=== PATIENT | male | born 1950 | race Caucasian/White ===

== ENCOUNTER 2019-09-23 09:59 | Observation (INO) | payer OTHER ==
[~2019-09-23] VITALS: Ht 175.3 cm; Wt 116.2 kg
[~2019-09-23 09:59] MED LIST: AMLO5 PO; ASPI325; ASPI81CH PO; ATEN50; BUPR100ER PO; CAND16; CENTRUM SILVER1 EAC2 PO; DICL75ER; FISH1000 PO; FURO40 PO; GLIP5ER; GLIP5ER PO; HYDCHL25 PO; LANS30EC; LEVSOD150 PO; LOSA50 PO; METF500 PO; METO50ER PO; NITR.4SL SL; NORT10 PO; PANT40 PO; POTA10T PO; ROSU10TA PO; SERT100; SERT25 PO; SIMV40; TRAM50
[2019-09-23] MEDS ORDERED: ATOR80 PO (10:15)
[2019-09-23] MEDS ORDERED: THERA-D2000 UNIT PO (10:16)
[2019-09-23] MEDS ORDERED: Zyrtec10 MG PO (10:16)
[2019-09-23] MEDS ORDERED: ARTIFICIAL TEA1 EACH BOTHEYES (10:17)
[2019-09-23] MEDS ORDERED: DOCU100 PO (10:17)
[2019-09-23] MEDS ORDERED: HYDR1TAB94 PO (10:18)
[2019-09-23] MEDS ORDERED: Flonase 0.05% N16 GM (10:18)
[2019-09-23] MEDS ORDERED: MIRALAX17 GM PO (10:21)
[2019-09-23] MEDS ORDERED: TAMS.4ER PO (10:23)
[2019-09-23 10:28] LABS: BASOPHILS ABSOLUTE AUTO 0.03 K/mm3 (0.00-0.23); BASOPHILS PERCENT AUTO 1 % (0-2); EOSINOPHILS ABSOLUTE AUTO 0.17 K/mm3 (0.00-0.68); EOSINOPHILS PERCENT AUTO 4 % (0-6); Hematocrit 34.9 % (37.0-53.0); Hemoglobin 12.2 g/dL (13.5-17.5); IMMATURE GRAN ABSOLUTE AUTO 0.07 K/mm3 (0.00-0.10); IMMATURE GRAN PERCENT AUTO 2 % (0-1); LYMPHOCYTES ABSOLUTE AUTO 1.13 K/mm3 (0.84-5.20); LYMPHOCYTES PERCENT AUTO 24 % (21-46); MONOCYTES ABSOLUTE AUTO 0.42 K/mm3 (0.16-1.47); MONOCYTES PERCENT AUTO 9 % (4-13); Mean Corpuscular HGB 31.4 pg (26.0-34.0); Mean Corpuscular Volume 90 fL (80-100); NEUTROPHILS ABSOLUTE AUTO 2.99 K/mm3 (1.96-9.15); NEUTROPHILS PERCENT AUTO 62 % (41-73); Platelet Count 175 K/mm3 (150-400); RDW Coefficient Variation 13.2 % (11.7-14.2); RDW Standard Deviation 43.6 fL (35.1-46.3); Red Blood Cell Count 3.88 M/mm3 (4.30-5.90); White Blood Cell Count 4.81 K/mm3 (4.00-11.30)
[2019-09-23 10:48] LABS: Alanine Aminotransfer (ALT/SGP 30 U/L (12-78); Albumin, Blood 3.6 g/dL (3.4-5.0); Albumin/Globulin Ratio 1.1 (0.8-1.8); Alk Phos 100 U/L (50-136); Anion Gap 7 mmol/L (6-16); Aspartate Aminotrans (AST/SGOT 16 U/L (12-37); Bilirubin, Total 0.5 mg/dL (0.1-1.0); Blood Urea Nitrogen 17 mg/dL (8-24); Bun/Creatinine Ratio 15.3 (12.0-20.0); CO2, Blood 25 mmol/L (21-32); Calcium, Blood 8.5 mg/dL (8.5-10.1); Chloride, Blood 109 mmol/L (98-108); Creatinine, Blood 1.11 mg/dL (0.60-1.20); Globulin, Blood 3.4 g/dL (2.2-4.0); Glomerular Filtration Rate >60 (60-); Glucose, Blood 191 mg/dL (70-99); Potassium, Blood 4.1 mmol/L (3.5-5.5); Sodium, Blood 141 mmol/L (136-145); Troponin I <0.015 ng/mL (0.000-0.040)
[2019-09-23] MEDS ORDERED: ACET500 PO (10:48)
[2019-09-23 10:54] LABS: Source, Urine Clean Catch
[2019-09-23 11:02] LABS: Bilirubin, Urine Neg (Neg); Blood, Urine Neg (Neg); Glucose Qualitative, Urine Neg (Neg); Ketones, Urine Neg (Neg); Leukocyte Esterase, Urine Neg (Neg); Nitrite, Urine Neg (Neg); Protein, Urine Neg (Neg); Urobilinogen, Urine NORM (Normal)
[2019-09-23 11:08] LABS: Appearance, Urine Clear (Clear); Color, Urine Yellow (P-Yellow)
--- NOTE | 2019-09-23 17:32 | NUR ---
SHIFT SUMMARY ED ADMIT THIS AFTERNOON. PATIENT DENIES PAIN, NAUSEA, AND SHORTNESS OF BREATH. PATIENT REPORTS OCCASSIONAL FEELING OF DIZZINESS. PATIENT UP SBA IN ROOM. TELE RUNNING NSR IN THE 60'S. CALL LIGHT IN REACH.
[2019-09-23 18:26] LABS: Adenovirus Not Detected (NOT DETECT); Bordetella pertussis Not Detected (NOT DETECT); Chlamydophila pneumoniae Not Detected (NOT DETECT); Coronavirus 229E Not Detected (NOT DETECT); Coronavirus HKU1 Not Detected (NOT DETECT); Coronavirus NL63 Not Detected (NOT DETECT); Coronavirus OC43 Not Detected (NOT DETECT); Human Metapneumovirus Not Detected (NOT DETECT); Human Rhinovirus/Enterovirus Not Detected (NOT DETECT); Influenza A Not Detected (NOT DETECT); Influenza A/2009-H1 Not Detected (NOT DETECT); Influenza A/H1 Not Detected (NOT DETECT); Influenza A/H3 Not Detected (NOT DETECT); Influenza B Not Detected (NOT DETECT); Mycoplasma pneumoniae Not Detected (NOT DETECT); Parainfluenza Virus 1 Not Detected (NOT DETECT); Parainfluenza Virus 2 Not Detected (NOT DETECT); Parainfluenza Virus 3 Not Detected (NOT DETECT); Parainfluenza Virus 4 Not Detected (NOT DETECT); Respiratory Syncytial Virus Not Detected (NOT DETECT)
[2019-09-24 05:29] LABS: BASOPHILS ABSOLUTE AUTO 0.02 K/mm3 (0.00-0.23); BASOPHILS PERCENT AUTO 1 % (0-2); EOSINOPHILS ABSOLUTE AUTO 0.17 K/mm3 (0.00-0.68); EOSINOPHILS PERCENT AUTO 4 % (0-6); Hemoglobin 11.2 g/dL (13.5-17.5); IMMATURE GRAN ABSOLUTE AUTO 0.06 K/mm3 (0.00-0.10); IMMATURE GRAN PERCENT AUTO 2 % (0-1); LYMPHOCYTES ABSOLUTE AUTO 0.93 K/mm3 (0.84-5.20); LYMPHOCYTES PERCENT AUTO 23 % (21-46); MONOCYTES ABSOLUTE AUTO 0.34 K/mm3 (0.16-1.47); MONOCYTES PERCENT AUTO 9 % (4-13); Mean Corpuscular HGB 31.2 pg (26.0-34.0); Mean Corpuscular HGB Conc 33.9 g/dL (31.5-36.5); Mean Corpuscular Volume 92 fL (80-100); Mean Platelet Volume 10.7 fL (9.1-12.4); NEUTROPHILS ABSOLUTE AUTO 2.45 K/mm3 (1.96-9.15); NEUTROPHILS PERCENT AUTO 62 % (41-73); Platelet Count 139 K/mm3 (150-400); RDW Coefficient Variation 13.2 % (11.7-14.2); RDW Standard Deviation 44.2 fL (35.1-46.3); Red Blood Cell Count 3.59 M/mm3 (4.30-5.90); White Blood Cell Count 3.97 K/mm3 (4.00-11.30)
[2019-09-24 06:09] LABS: Alanine Aminotransfer (ALT/SGP 28 U/L (12-78); Albumin, Blood 3.1 g/dL (3.4-5.0); Alk Phos 82 U/L (50-136); Anion Gap 6 mmol/L (6-16); Aspartate Aminotrans (AST/SGOT 43 U/L (12-37); Bilirubin, Total 0.5 mg/dL (0.1-1.0); Blood Urea Nitrogen 18 mg/dL (8-24); Bun/Creatinine Ratio 16.8 (12.0-20.0); CO2, Blood 25 mmol/L (21-32); Calcium, Blood 8.5 mg/dL (8.5-10.1); Chloride, Blood 108 mmol/L (98-108); Creatinine, Blood 1.07 mg/dL (0.60-1.20); Globulin, Blood 3.1 g/dL (2.2-4.0); Glomerular Filtration Rate >60 (60-); Glucose, Blood 192 mg/dL (70-99); Potassium, Blood 4.7 mmol/L (3.5-5.5); Sodium, Blood 139 mmol/L (136-145); Total Protein, Blood 6.2 g/dL (6.4-8.2); Troponin I <0.015 ng/mL (0.000-0.040)
--- NOTE | 2019-09-24 06:29 | NUR ---
SHIFT SUMMARY PT IS A 69 Y/O MALE, ADMITTED FOR CHEST PAIN AND NEAR-SYNCOPAL EPISODE. PT IS A&O X 4, AND A SBA TO THE BATHROOM. THE PT REPORTED ONE EPISODE OF OF CHEST PRESSURE, SOB AND LIGHTHEADEDNESS, SIMILAR TO THE EPISODE THAT BROUGHT HIM INTO THE HOSPITAL. PER THE SALES EXPERT, THERE WAS NO CHANGES IN RATE OR RHYTHM. HE ALSO REPORTED MILD CHEST PAIN WITH THE PRESSURE, AT A 2/10. THE EPISODE ENDED WITHOUT MEDICATION WITHIN FIFTEEN MINUTES. NO OTHER ACUTE CARDIAC EVENTS NOTED. VITAL SIGNS STABLE. TELE SHOWED SB WITH A FDB IN THE 50S. NO COMPLAINTS OF NAUSEA. NO OTHER ACUTE CHANGES IN PT CONDITION NOTED. WILL CONTINUE TO MONITOR AND TREAT PER EMAR UNTIL HAND OFF TO DAY SHIFT RN.
--- NOTE | 2019-09-24 08:03 | NUR ---
PT HR TRENDING IN THE 50'S. WILL HOLD BETA KATI UNTIL SPEAKING WITH DR BRUNER. PT HAD ANOTHER EPISODE LAST NIGHT OF SYNCOPY AND CP WITH NO CHANGE ON TELE PER REPORT. NITRO PATCH WILL BE CHANGED THIS MORNING.
--- NOTE | 2019-09-24 12:00 | NUR ---
Echocardiogram completed.
[2019-09-24] MEDS ORDERED: METO25ER PO (16:10)
--- NOTE | 2019-09-24 16:34 | NUR ---
DISCHARGE NOTE- PT WAS GIVE VERBAL AND WRITTEN DISCHARGE INSTRUCTIONS AND ACKNOWLEDGED UNDERSTANDING OF THEM. PT IV AND TELE DC'D PRIOR TO DISCHARGE. PT HAD NO S&S OF DISTRESS NOTED AT THE TIME OF DISCHARGE AND HAD DENIED CP ALL SHIFT. PT NEW DOSE OF METOPROLOL WAS EXPLAIN[facility] REQUEST OF THE PT. NO FURTHER QUESTIONS AT THE TIME OF DISCHARGE. PT ESCORTED OUT TO THE [facility] VIA WC BY THE OUTSOLE COMPRESSOR.
--- NOTE | 2019-09-24 16:45 | NUR ---
Per admit trigger, I met with Mr. Matute to offer prayer and spiritual support. He reports a strong linda in a loving and powerful God that sustains him. He was in the process of d/c. Prayer for continued health provided at his request.
== END 2019-09-24 16:25 | disposition home or self-care (01) ==
LOC: ER 09:59 → MEDS 10:00
PROVIDERS: Emergency Medicine; Nurse Practitioner Acute Care; ADMIT Internal Medicine
DX: R07.89 Other chest pain (principal); I25.10 Atherosclerotic heart disease of native coronary artery without angina pectoris; Z95.5 Presence of coronary angioplasty implant and graft; E78.5 Hyperlipidemia, unspecified; E11.9 Type 2 diabetes mellitus without complications; I10 Essential (primary) hypertension; G47.33 Obstructive sleep apnea (adult) (pediatric); E03.9 Hypothyroidism, unspecified; K21.9 Gastro-esophageal reflux disease without esophagitis; N40.0 Benign prostatic hyperplasia without lower urinary tract symptoms; F32.9 Major depressive disorder, single episode, unspecified; Z88.1 Allergy status to other antibiotic agents; Z79.82 Long term (current) use of aspirin; Z79.899 Other long term (current) drug therapy
CPT/HCPCS: 0099U; 36415; 71046; 80053; 81003; 82947; 83690; 83880; 84484; 85025; 93005; 93010; 93306; 94660; 94762; 96372; 99285-25; A9270-GY; G0378; J1650

== ENCOUNTER 2021-01-23 02:29 | Observation (INO) | payer OTHER ==
[~2021-01-23] VITALS: Ht 175.3 cm; Wt 104.3 kg
[~2021-01-23 02:29] MED LIST changes: +ACET500 PO; +ARTIFICIAL TEA1 EACH BOTHEYES; +ATOR80 PO; +DOCU100 PO; +Flonase 0.05% N16 GM; +HYDR1TAB94 PO; +METO25ER PO; +MIRALAX17 GM PO; +TAMS.4ER PO; +THERA-D2000 UNIT PO; +Zyrtec10 MG PO
[2021-01-23 02:48] LABS: BASOPHILS ABSOLUTE AUTO 0.02 K/mm3 (0.00-0.23); BASOPHILS PERCENT AUTO 0 % (0-2); EOSINOPHILS ABSOLUTE AUTO 0.17 K/mm3 (0.00-0.68); EOSINOPHILS PERCENT AUTO 4 % (0-6); Hematocrit 35.5 % (37.0-53.0); Hemoglobin 12.2 g/dL (13.5-17.5); IMMATURE GRAN ABSOLUTE AUTO 0.04 K/mm3 (0.00-0.10); IMMATURE GRAN PERCENT AUTO 1 % (0-1); LYMPHOCYTES PERCENT AUTO 26 % (21-46); MONOCYTES ABSOLUTE AUTO 0.38 K/mm3 (0.16-1.47); MONOCYTES PERCENT AUTO 8 % (4-13); Mean Corpuscular HGB 30.9 pg (26.0-34.0); Mean Corpuscular HGB Conc 34.4 g/dL (31.5-36.5); Mean Corpuscular Volume 90 fL (80-100); Mean Platelet Volume 9.8 fL (9.1-12.4); NEUTROPHILS ABSOLUTE AUTO 2.78 K/mm3 (1.96-9.15); NEUTROPHILS PERCENT AUTO 61 % (41-73); Platelet Count 177 K/mm3 (150-400); RDW Coefficient Variation 13.1 % (11.7-14.2); RDW Standard Deviation 43.1 fL (35.1-46.3); Red Blood Cell Count 3.95 M/mm3 (4.30-5.90); White Blood Cell Count 4.59 K/mm3 (4.00-11.30)
[2021-01-23] MEDS ORDERED: METOPROLOL TART50 M3 PO (03:04)
[2021-01-23] MEDS ORDERED: Atarax10 MG PO (03:04)
[2021-01-23] MEDS ORDERED: BUPROPION XL150 M1 PO (03:04)
[2021-01-23 03:09] LABS: Alanine Aminotransfer (ALT/SGP 32 U/L (12-78); Albumin, Blood 3.6 g/dL (3.4-5.0); Albumin/Globulin Ratio 1.2 (0.8-1.8); Alk Phos 102 U/L (50-136); Anion Gap 5 mmol/L (6-16); Aspartate Aminotrans (AST/SGOT 17 U/L (12-37); Bilirubin, Total 0.3 mg/dL (0.1-1.0); Blood Urea Nitrogen 18 mg/dL (8-24); Bun/Creatinine Ratio 14.6 (12.0-20.0); CO2, Blood 26 mmol/L (21-32); Calcium, Blood 8.5 mg/dL (8.5-10.1); Chloride, Blood 107 mmol/L (98-108); Creatinine, Blood 1.23 mg/dL (0.60-1.20); Glomerular Filtration Rate >60 (60-); Glucose, Blood 156 mg/dL (70-99); Potassium, Blood 3.8 mmol/L (3.5-5.5); Sodium, Blood 138 mmol/L (136-145); Total Protein, Blood 6.6 g/dL (6.4-8.2); Troponin I <0.015 ng/mL (0.000-0.040)
[2021-01-23 11:42] LABS: BASOPHILS ABSOLUTE AUTO 0.02 K/mm3 (0.00-0.23); BASOPHILS PERCENT AUTO 1 % (0-2); EOSINOPHILS ABSOLUTE AUTO 0.15 K/mm3 (0.00-0.68); EOSINOPHILS PERCENT AUTO 4 % (0-6); Hematocrit 36.7 % (37.0-53.0); Hemoglobin 12.4 g/dL (13.5-17.5); IMMATURE GRAN ABSOLUTE AUTO 0.03 K/mm3 (0.00-0.10); IMMATURE GRAN PERCENT AUTO 1 % (0-1); LYMPHOCYTES ABSOLUTE AUTO 1.03 K/mm3 (0.84-5.20); LYMPHOCYTES PERCENT AUTO 26 % (21-46); MONOCYTES ABSOLUTE AUTO 0.27 K/mm3 (0.16-1.47); MONOCYTES PERCENT AUTO 7 % (4-13); Mean Corpuscular HGB 30.2 pg (26.0-34.0); Mean Corpuscular HGB Conc 33.8 g/dL (31.5-36.5); Mean Corpuscular Volume 90 fL (80-100); Mean Platelet Volume 10.1 fL (9.1-12.4); NEUTROPHILS PERCENT AUTO 62 % (41-73); Platelet Count 187 K/mm3 (150-400); RDW Standard Deviation 42.5 fL (35.1-46.3)
[2021-01-23 11:56] LABS: Alanine Aminotransfer (ALT/SGP 32 U/L (12-78); Albumin, Blood 3.7 g/dL (3.4-5.0); Albumin/Globulin Ratio 1.2 (0.8-1.8); Alk Phos 97 U/L (50-136); Anion Gap 6 mmol/L (6-16); Aspartate Aminotrans (AST/SGOT 17 U/L (12-37); Bilirubin, Total 0.4 mg/dL (0.1-1.0); Blood Urea Nitrogen 17 mg/dL (8-24); Bun/Creatinine Ratio 15.7 (12.0-20.0); CO2, Blood 25 mmol/L (21-32); Calcium, Blood 8.8 mg/dL (8.5-10.1); Chloride, Blood 109 mmol/L (98-108); Creatinine, Blood 1.08 mg/dL (0.60-1.20); Globulin, Blood 3.2 g/dL (2.2-4.0); Glomerular Filtration Rate >60 (60-); Glucose, Blood 200 mg/dL (70-99); Potassium, Blood 3.8 mmol/L (3.5-5.5); Sodium, Blood 140 mmol/L (136-145); Total Protein, Blood 6.9 g/dL (6.4-8.2)
[2021-01-23 11:57] LABS: CPK Creatine Kinase 87 U/L (39-308); Troponin I <0.015 ng/mL (0.000-0.040)
--- NOTE | 2021-01-23 17:16 | NUR ---
SHIFT SUMMARY PT IS A&O, INDEPENDENT IN AND TO [facility]. ADMITTED LAST NIGHT FOR C/O CP RADIATING DOWN L ARM. PT REPORTED NO PAIN AT START OF SHIFT, JUST PRESSURE ACROSS TOP OF ABD/CHEST AREA. PT LATER REPORTED CP RETURNING AND STARTING TO RADIATE DOWN L ARM AGAIN. DR SANCHEZ NOTIFIED. STAT EKG DONE; NO CHANGES NOTED FROM ADMIT. PT REPORTED PAIN WAS THE SAME WHEN HE HAS HAD PANCREATITIS. PT FORGOT TO MENTION THIS TO DR SANCHEZ. PT HAS REMAINED SR ON TELE, PER MX TECH. NO FURTHER C/O PAIN. TROPONIN'S REMAIN NEG TO PRESENT. TO THIS AFTERNOON. DR SANCHEZ ORDERED ONE STRESS TEST PROTOCOL. NUC MED CALLED TO REPORT PLAN AND TIMES OF TESTS. PT NPO EXCEPT ICE CHIPS. PT IS NOW HAVING FIRST PART OF TEST BEING DONE. SECOND PART TO BE COMPLETED IN AM AT 0930. PT AWARE TO BE NPO AFTER MN EXCEPT WATER AND ICE. VERBALIZED UNDERSTANDING. CALL LT IN REACH. ABLE TO MAKE NEEDS KNOWN.
[2021-01-23 19:51] LABS: CPK Creatine Kinase 62 U/L (39-308); Troponin I <0.015 ng/mL (0.000-0.040)
--- NOTE | 2021-01-24 10:22 | NUR ---
UNABLE TO CHART LEXISCAN IN EMAR DUE TO LEXISCAN AND CAFFEINE APPEARING VIEW ONLY. PHARMACY WELL INFORMATICS INFORMED. LEXISCAN 0.4 MG WAS INFUSED DURING STRESS TEST. CAFFEINE WAS RETURNED TO PHARMACY.
--- NOTE | 2021-01-24 16:50 | NUR ---
DISCHARGE SUMMARY PATIENT DISCHARGED TO HOME. PATIENT ALERT, ORIENTED, AND INDEPENDENT IN THE ROOM THIS SHIFT. PATIENT COMPLETED THE SECOND PORTION OF A CARDIAC STRESS TEST THIS AM. PATIENT STATES VERY MILD CHEST DISCOMFORT THIS SHIFT. PATIENT'S SPOUSE IN THE ROOM FOR DISCHARGE. DISCHARGE AND MEDICATION INSTRUCTIONS REVIEWED WITH PATIENT AND SPOUSE, NO QUESTIONS AT THIS TIME. PATIENT DRESSED INDEPENDENTLY FOR DISCHARGE. IV REMOVED PRIOR TO DISCHARGE. PATIENT REFUSED WHEELCHAIR FOR DISCHARGE, STATING HE CAN WALK. PATIENT ESCORTED TO THE [facility] FOR DISCHARGE.
== END 2021-01-24 16:33 | disposition home or self-care (01) ==
LOC: ER 02:29 → MEDS 03:54
PROVIDERS: Emergency Medicine; ADMIT Internal Medicine
DX: R07.89 Other chest pain (principal); I10 Essential (primary) hypertension; E11.9 Type 2 diabetes mellitus without complications; E03.9 Hypothyroidism, unspecified; E78.5 Hyperlipidemia, unspecified; K21.9 Gastro-esophageal reflux disease without esophagitis; M06.9 Rheumatoid arthritis, unspecified; R41.3 Other amnesia; F32.9 Major depressive disorder, single episode, unspecified; G47.33 Obstructive sleep apnea (adult) (pediatric); E66.9 Obesity, unspecified; Q22.5 Ebstein's anomaly; Z79.84 Long term (current) use of oral hypoglycemic drugs; Z79.82 Long term (current) use of aspirin; Z96.659 Presence of unspecified artificial knee joint; Z85.89 Personal history of malignant neoplasm of other organs and systems; Z92.21 Personal history of antineoplastic chemotherapy; Z92.3 Personal history of irradiation; Z68.34 Body mass index [BMI] 34.0-34.9, adult
CPT/HCPCS: 36415; 71045; 78452; 80053; 82550; 82947; 84484; 85025; 93005; 93010; 93017; 94762; 96374; 99285-25; A9270; A9500; G0378; J0706; J2785; J3010; J7030

== ENCOUNTER 2021-03-21 12:15 | Emergency (ER) | payer OTHER ==
[~2021-03-21] VITALS: Ht 175.3 cm; Wt 108.0 kg
[~2021-03-21 12:15] MED LIST changes: +Atarax10 MG PO; +BUPROPION XL150 M1 PO; +METOPROLOL TART50 M3 PO
[2021-03-21 13:00] LABS: BASOPHILS ABSOLUTE AUTO 0.02 K/mm3 (0.00-0.23); BASOPHILS PERCENT AUTO 0 % (0-2); EOSINOPHILS ABSOLUTE AUTO 0.21 K/mm3 (0.00-0.68); EOSINOPHILS PERCENT AUTO 4 % (0-6); Hematocrit 42.3 % (37.0-53.0); Hemoglobin 13.7 g/dL (13.5-17.5); IMMATURE GRAN ABSOLUTE AUTO 0.03 K/mm3 (0.00-0.10); IMMATURE GRAN PERCENT AUTO 1 % (0-1); LYMPHOCYTES ABSOLUTE AUTO 1.18 K/mm3 (0.84-5.20); LYMPHOCYTES PERCENT AUTO 23 % (21-46); MONOCYTES ABSOLUTE AUTO 0.48 K/mm3 (0.16-1.47); MONOCYTES PERCENT AUTO 9 % (4-13); Mean Corpuscular HGB Conc 32.4 g/dL (31.5-36.5); Mean Corpuscular Volume 93 fL (80-100); Mean Platelet Volume 10.4 fL (9.1-12.4); NEUTROPHILS ABSOLUTE AUTO 3.32 K/mm3 (1.96-9.15); NEUTROPHILS PERCENT AUTO 63 % (41-73); Platelet Count 159 K/mm3 (150-400); RDW Coefficient Variation 12.6 % (11.7-14.2); RDW Standard Deviation 42.4 fL (35.1-46.3); Red Blood Cell Count 4.57 M/mm3 (4.30-5.90); White Blood Cell Count 5.24 K/mm3 (4.00-11.30)
[2021-03-21 13:15] LABS: Alanine Aminotransfer (ALT/SGP 33 U/L (12-78); Albumin, Blood 3.5 g/dL (3.4-5.0); Alk Phos 96 U/L (50-136); Anion Gap 8 mmol/L (6-16); Aspartate Aminotrans (AST/SGOT 22 U/L (12-37); Bilirubin, Total 0.4 mg/dL (0.1-1.0); Blood Urea Nitrogen 16 mg/dL (8-24); CO2, Blood 24 mmol/L (21-32); Calcium, Blood 9.2 mg/dL (8.5-10.1); Chloride, Blood 108 mmol/L (98-108); Creatinine, Blood 1.07 mg/dL (0.60-1.20); Globulin, Blood 3.5 g/dL (2.2-4.0); Glomerular Filtration Rate >60 (60-); Glucose, Blood 220 mg/dL (70-99); Potassium, Blood 4.2 mmol/L (3.5-5.5); Sodium, Blood 140 mmol/L (136-145); Troponin I <0.015 ng/mL (0.000-0.040)
[2021-03-21] MEDS ORDERED: PRED20 PO (14:31)
[2021-03-21] MEDS ORDERED: ALBU90OI INH (14:31)
== END 2021-03-21 14:45 | disposition home or self-care (01) ==
LOC: ER 12:15
PROVIDERS: Physician Assistant
DX: J44.1 Chronic obstructive pulmonary disease with (acute) exacerbation (principal); I10 Essential (primary) hypertension; Z57.39 Occupational exposure to other air contaminants
CPT/HCPCS: 36415; 71046; 80053; 83880; 84484; 85025; 93005; 93010; 99285-25

== ENCOUNTER 2021-08-27 09:11 | Emergency (ER) | payer OTHER ==
[~2021-08-27] VITALS: Ht 175.3 cm; Wt 90.7 kg
[~2021-08-27 09:11] MED LIST changes: +ALBU90OI INH; +PRED20 PO
== END 2021-08-27 10:35 | disposition home or self-care (01) ==
LOC: ER 09:11
DX: U07.1 COVID-19 (principal); I10 Essential (primary) hypertension; I25.10 Atherosclerotic heart disease of native coronary artery without angina pectoris; Z79.84 Long term (current) use of oral hypoglycemic drugs; Z79.82 Long term (current) use of aspirin; Z79.899 Other long term (current) drug therapy; Z79.52 Long term (current) use of systemic steroids
CPT/HCPCS: 99282

== ENCOUNTER 2023-03-22 16:01 | Emergency (ER) | payer OTHER ==
[~2023-03-22] VITALS: Ht 172.7 cm; Wt 91.6 kg
[2023-03-22 16:12] VITALS: BP 148/67
== END 2023-03-22 17:30 | disposition home or self-care (01) ==
LOC: ER 16:01
DX: S63.502A Unspecified sprain of left wrist, initial encounter (principal); X50.0XXA Overexertion from strenuous movement or load, initial encounter; Z79.899 Other long term (current) drug therapy; Z79.82 Long term (current) use of aspirin; Z79.84 Long term (current) use of oral hypoglycemic drugs; I10 Essential (primary) hypertension; G47.30 Sleep apnea, unspecified; I25.10 Atherosclerotic heart disease of native coronary artery without angina pectoris
CPT/HCPCS: 73110; J1885

== ENCOUNTER 2023-08-21 09:50 | Emergency (ER) | payer OTHER ==
[~2023-08-21] VITALS: Ht 172.7 cm; Wt 92.1 kg
[2023-08-21 10:23] VITALS: BP 148/78
[2023-08-21] MEDS ORDERED: GABA300 PO (12:17)
== END 2023-08-21 12:53 | disposition home or self-care (01) ==
LOC: ER 09:50
DX: M51.16 Intervertebral disc disorders with radiculopathy, lumbar region (principal); M51.17 Intervertebral disc disorders with radiculopathy, lumbosacral region; Z79.899 Other long term (current) drug therapy; Z79.82 Long term (current) use of aspirin; Z79.84 Long term (current) use of oral hypoglycemic drugs; E11.9 Type 2 diabetes mellitus without complications; M06.9 Rheumatoid arthritis, unspecified; E03.9 Hypothyroidism, unspecified; K21.9 Gastro-esophageal reflux disease without esophagitis; G47.33 Obstructive sleep apnea (adult) (pediatric); I10 Essential (primary) hypertension
CPT/HCPCS: 72128; 72131; J1885

== ENCOUNTER → 2023-11-21 | Outpatient (CLI) | payer OTHER ==
[~2023-11-21] MED LIST changes: +GABA300 PO
== END ==
LOC: LAB 07:59 → LAB SHORT 07:59
DX: L30.8 Other specified dermatitis (principal)
CPT/HCPCS: 88312

== ENCOUNTER 2024-07-03 10:44 | Emergency (ER) | payer OTHER ==
[~2024-07-03] VITALS: Ht 177.8 cm; Wt 90.7 kg
[2024-07-03 10:48] VITALS: BP 118/100
[2024-07-03] MEDS ORDERED: Ondansetron HCl 2 MG / ML 2ML Vial IV ONE (10:55)
[2024-07-03] MEDS ORDERED: Ketorolac Tromethamine 30mg Vial IM ONE (11:35)
[2024-07-03] MEDS ORDERED: Robaxin750 MG PO (11:35)
[2024-07-03] MEDS ORDERED: Methocarbamol 500 MG Tab PO ONE (11:35)
[2024-07-03] MEDS ORDERED: IBUP600 PO (11:35)
== END 2024-07-03 11:52 | disposition home or self-care (01) ==
LOC: ER 10:44
DX: M54.16 Radiculopathy, lumbar region (principal); E11.9 Type 2 diabetes mellitus without complications; E03.9 Hypothyroidism, unspecified; K21.9 Gastro-esophageal reflux disease without esophagitis; I10 Essential (primary) hypertension; Z79.84 Long term (current) use of oral hypoglycemic drugs; Z79.82 Long term (current) use of aspirin; Z79.899 Other long term (current) drug therapy
CPT/HCPCS: 99283